=== PATIENT | female | born 1945 | race Hispanic/Latino ===

== ENCOUNTER 2021-04-09 07:23 | Day surgery (SDC) | payer MEDICARE ==
[~2021-04-09] VITALS: Ht 152.4 cm; Wt 46.1 kg
[~2021-04-09 07:23] MED LIST: NACL 0.9% 1000ML 1,000 ML IV ONE
[2021-04-09 07:35] VITALS: BP 127/74
[2021-04-09] MEDS ORDERED: VITAMIN D3 PO (08:19)
[2021-04-09] MEDS ORDERED: MONT10TA32 PO (08:19)
[2021-04-09] MEDS ORDERED: MECL-226 PO (08:19)
[2021-04-09] MEDS ORDERED: FAMO20TA8 PO (08:19)
[2021-04-09] MEDS ORDERED: DEXL60CA3 PO (08:19)
[2021-04-09] MEDS ORDERED: PROM25TA7 PO (08:19)
[2021-04-09] MEDS ORDERED: ONDA4TAB10 PO (08:19)
[2021-04-09] MEDS ORDERED: SUCR1ORA15 PO (08:19)
[2021-04-09] MEDS ORDERED: CA C1TAB95 PO (08:21)
[2021-04-09] MEDS ORDERED: POLY17PO4 PO (08:21)
[2021-04-09] MEDS ORDERED: PROPOFOL 10 MG/ML 20ML VIAL IV ONE (09:59)
[2021-04-09] MEDS ORDERED: SIMETHICONE 40 MG/0.6 ML ML ONE (10:08)
[2021-04-09 10:20] VITALS: BP 122/73
[2021-04-09 10:25] VITALS: BP 126/71
[2021-04-09 10:30] VITALS: BP 127/68
[2021-04-09 10:35] VITALS: BP 131/75
[2021-04-09 10:40] VITALS: BP 120/80
== END 2021-04-09 10:50 | disposition home or self-care (01) ==
LOC: DAH 07:23 → ENDO 07:23
PROVIDERS: ATTEND Internal Medicine Gastroenterology
DX: R10.12 Left upper quadrant pain (principal); R93.3 Abnormal findings on diagnostic imaging of other parts of digestive tract; K83.8 Other specified diseases of biliary tract; R93.5 Abnormal findings on diagnostic imaging of other abdominal regions, including retroperitoneum; R93.2 Abnormal findings on diagnostic imaging of liver and biliary tract; K21.00 Gastro-esophageal reflux disease with esophagitis, without bleeding; K29.70 Gastritis, unspecified, without bleeding; I25.10 Atherosclerotic heart disease of native coronary artery without angina pectoris; E78.5 Hyperlipidemia, unspecified; K44.9 Diaphragmatic hernia without obstruction or gangrene; K59.04 Chronic idiopathic constipation; K31.84 Gastroparesis; Z20.822 Contact with and (suspected) exposure to COVID-19; Z86.010 Personal history of colon polyps; Z85.3 Personal history of malignant neoplasm of breast; Z79.899 Other long term (current) drug therapy
CPT/HCPCS: 43239; 43259; 87635; 93005; A4215 ×2; A4221; A4222; A4223; A4606; A4620; A4657; A4663; C9803; J2704; J7030